=== PATIENT | male | born 1985 | race African-American/Black ===

== ENCOUNTER 2021-02-11 23:58 | Emergency (ER) | payer OTHER ==
[~2021-02-11] VITALS: Ht 205.7 cm; Wt 102.0 kg
[2021-02-12] MEDS ORDERED: AMOX/K CLAV875 M1 PO (02:12)
[2021-02-12 02:40] VITALS: BP 146/79
== END 2021-02-12 02:40 | disposition home or self-care (01) | DRG 605 ==
LOC: ED 23:58
PROC: 0HQLXZZ Repair Left Lower Leg Skin, External Approach (ICD-10-PCS; principal; 2021-02-12)
DX: S81.852A Open bite, left lower leg, initial encounter (principal); F17.200 Nicotine dependence, unspecified, uncomplicated; W54.0XXA Bitten by dog, initial encounter; Y93.89 Activity, other specified; Y92.009 Unspecified place in unspecified non-institutional (private) residence as the place of occurrence of the external cause; Y99.0 Civilian activity done for income or pay

== ENCOUNTER 2021-02-14 21:20 | Emergency (ER) | payer OTHER ==
[~2021-02-14] VITALS: Ht 208.3 cm; Wt 102.0 kg
[~2021-02-14 21:20] MED LIST: AMOX/K CLAV875 M1 PO
[2021-02-14] MEDS ORDERED: PENICILLN VK500 MG PO (22:05)
[2021-02-14] MEDS ORDERED: METRONIDAZOL500 MG PO (22:05)
[2021-02-14] MEDS ORDERED: VOLTAREN75 MG PO (22:05)
[2021-02-14 22:15] VITALS: BP 141/72
== END 2021-02-14 22:25 | disposition home or self-care (01) | DRG 603 ==
LOC: ED 21:20
DX: L03.115 Cellulitis of right lower limb (principal); S91.051A Open bite, right ankle, initial encounter; F17.200 Nicotine dependence, unspecified, uncomplicated; W54.0XXA Bitten by dog, initial encounter; T36.0X6A Underdosing of penicillins, initial encounter; T36.1X6A Underdosing of cephalosporins and other beta-lactam antibiotics, initial encounter; Z91.120 Patient's intentional underdosing of medication regimen due to financial hardship

== ENCOUNTER 2021-02-24 20:10 | Emergency (ER) | payer OTHER ==
[~2021-02-24] VITALS: Ht 208.3 cm; Wt 121.0 kg
[~2021-02-24 20:10] MED LIST changes: +METRONIDAZOL500 MG PO; +PENICILLN VK500 MG PO; +VOLTAREN75 MG PO
[2021-02-24 22:30] VITALS: BP 136/71
[2021-02-24] MEDS ORDERED: ULTRAM50 MG PO (22:37)
[2021-02-24] MEDS ORDERED: AMOX/K CLAV875 M1 PO (22:37)
== END 2021-02-24 22:30 | disposition home or self-care (01) | DRG 603 ==
LOC: ED 20:10
DX: L03.116 Cellulitis of left lower limb (principal); S81.852D Open bite, left lower leg, subsequent encounter; W54.0XXD Bitten by dog, subsequent encounter